=== PATIENT | female | born 1930 | race Caucasian/White ===

== ENCOUNTER 2018-01-07 12:14 | Emergency (ER) | payer MEDICARE, BC ==
--- NOTE | 2018-01-07 12:24 | EDM.PDOC ---
ED HPI GENERAL MEDICAL PROBLEM - General Chief Complaint: Back Pain or Injury Stated Complaint: BACK PAIN Time Seen by Provider: 01/07/18 12:21 Source of Information: Reports: Patient History Limitations: Reports: No Limitations - History of Present Illness INITIAL COMMENTS - FREE TEXT/NARRATIVE: HISTORY AND PHYSICAL: History of present illness: Patient is an 87-year-old female who presents to the emergency room with complaints of low back pain that radiates down her left lower extremity. She states she has a long-standing history of sciatic pain she has taken Flexeril, hydrocodone and Aleve for in the past. She reports she did a lot of "ironing yesterday" and when she woke up this morning was having low back pain that radiated down the left gluteus and posterior thigh. She tried Aleve this morning without any relief. Attempted to get into her primary care provider but he is out of town until next week. She does not have Flexeril or hydrocodone left for her sciatica. She denies any dysuria, hematuria, change in bowel pattern. She denies any new injury, falls or trauma. Review of systems: As per history of present illness and below otherwise all systems reviewed and negative. Past medical history: As per history of present illness and as reviewed below otherwise noncontributory. Surgical history: As per history of present illness and as reviewed below otherwise noncontributory. Social history: No reported history of drug or alcohol abuse. Family history: As per history of present illness and as reviewed below otherwise noncontributory. Physical exam: General: Well-developed and well-nourished 87-year-old female. Alert and oriented. Nontoxic appearing and in no acute distress. HEENT: Atraumatic, normocephalic, pupils equal and reactive bilaterally, negative for conjunctival pallor or scleral icterus, mucous membranes moist, throat clear, neck supple, nontender, trachea midline. No drooling or trismus noted. No meningeal signs Lungs: Clear to auscultation, breath sounds equal bilaterally, chest nontender. Heart: S1S2, regular rate and rhythm without overt murmur Abdomen: Soft, nondistended, nontender. Negative for masses or hepatosplenomegaly. Negative for costovertebral tenderness. Pelvis: Stable nontender. Genitourinary: Deferred. Rectal: Deferred. C-spine/Back Skin: Intact, warm, dry. No lesions or rashes noted. Extremities: Atraumatic, negative for cords or calf pain. Neurovascular unremarkable. Neuro: Awake, alert, oriented. Cranial nerves II through XII unremarkable. Cerebellum unremarkable. Motor and sensory unremarkable throughout. Exam nonfocal. Notes: A CT of the lumbar spine was done in 2016 which showed degenerative disc disease. Patient states she has been seeing her primary doctor for management of her sciatic pain. I would like to get a urinalysis to rule out UTI due to her age and complaint of back pain. UA is normal. I will give her Cataflam 50 mg one tab 3 times a day, dispense 21 no refill. Flexeril 5 mg 1 tab 3 times a day when necessary, dispense 21 no refill. Educated her to follow up with her primary caregiver. She voices understanding and is agreeable to plan of care. She denies any questions at this time. Diagnostics: [employer]: [] Impression: Low back pain with sciatica Plan: 1. Please take the medications as prescribed. The Cataflam is an anti- inflammatory so do not take it with additional NSAIDs such as ibuprofen or Aleve. Take this medication with food. Flexeril is a muscle relaxer. This medication may cause drowsiness so do not take it while driving or needing to be functioning outside of the house. Take these medications together up to 3 times daily. 2. Apply gentle heat to the painful area. Gentle stretching and range of motion exercises. Avoid sitting or being inactive for long periods of time. 3. Please follow-up with your primary caregiver in the next 2-3 days. Return to the ED as needed and as discussed. Definitive disposition and diagnosis as appropriate pending reevaluation and review of above. left back Pain Score (Numeric/FACES): 10 - Related Data Allergies Allergy/AdvReac Type Severity Reaction Status Date / Time Sulfa (Sulfonamide Allergy Other Verified 01/07/18 12:15 Antibiotics) Home Meds: Home Meds Aspirin 81 mg PO DAILY 04/03/16 [History] Clopidogrel [Plavix] 75 mg PO DAILY 04/03/16 [History] Insulin Glarg,Human.Rec.Analog [LantUS Solostar] 44 units SUBCUT BEDTIME [History] Insulin Lispro [HumaLOG] 20 units SUBCUT TIDAC 04/03/16 [History] Lutein/Minerals/Vit A,C & E [Ocuvite] 1 tab PO DAILY 04/03/16 [History] Triamterene/Hydrochlorothiazid [Triamterene-HCTZ 75-50 MG] 1 tab PO DAILY [History] Verapamil HCl [Verelan Pm] 300 mg PO BEDTIME 04/03/16 [History] amLODIPine [Norvasc] 5 mg PO DAILY 04/03/16 [History] atorvaSTATin [Lipitor] 5 mg PO DAILY 04/03/16 [History] cloNIDine [Catapres] 0.1 mg PO BID 04/03/16 [History] Cyclobenzaprine [Flexeril] 5 mg PO BID 01/07/18 [History] Hydrocodone/Acetaminophen [Hydrocodon-Acetaminoph 2.5-325] 1 tab PO BID [History] Losartan [Cozaar] 100 mg PO DAILY 01/07/18 [History] amLODIPine [Norvasc] 5 mg PO DAILY 01/07/18 [History] Past Medical History Cardiovascular History: Reports: Hypertension Musculoskeletal History: Reports: Other (See Below) Other Musculoskeletal History: sciatica Other Neuro History: Bilateral Carotid Stenosis, "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 Psychiatric History: Reports: None Endocrine/Metabolic History: Reports: Diabetes, Type II Immunologic History: Reports: None Oncologic (Cancer) History: Reports: None - Infectious Disease History Infectious Disease History: Reports: None - Past Surgical History Head Surgeries/Procedures: Reports: None Social & Family History - Family History Family Medical History: Noncontributory - Tobacco Use Smoking Status *Q: Never Smoker Second Hand Smoke Exposure: Yes - Recreational Drug Use Recreational Drug Use: No ED ROS GENERAL - Review of Systems Review Of Systems: ROS reveals no pertinent complaints other than HPI. ED EXAM,LOWER BACK PAIN/INJURY - Physical Exam Exam: See Below (See dictation) Course - Vital Signs Last Recorded V/S: Last Vital Signs Temp 97.7 F 01/07/18 12:17 Pulse 74 01/07/18 12:17 Resp 18 01/07/18 12:17 BP 121/64 01/07/18 12:17 Pulse Ox 96 01/07/18 12:17 - Orders/Labs/Meds Orders: Active Orders 24 hr Category Date Time Status UA W/MICROSCOPIC [URIN] Stat Lab 01/07/18 12:35 Ordered Labs: Laboratory Tests 01/07/18 Range/Units 12:35 Urine Color YELLOW Urine Appearance CLEAR Urine pH 6.0 (5.0-8.0) Ur Specific [place] 1.015 (1.001-1.035) Urine Protein TRACE (NEGATIVE) mg/dL Urine Glucose (UA) NEGATIVE (NEGATIVE) mg/dL Urine Ketones NEGATIVE (NEGATIVE) mg/dL Urine Occult Blood NEGATIVE (NEGATIVE) Urine Nitrite NEGATIVE (NEGATIVE) Urine Bilirubin NEGATIVE (NEGATIVE) Urine Urobilinogen 0.2 (<2.0) EU/dL Ur Leukocyte Esterase SMALL (NEGATIVE) Urine RBC 0-1 (0-2/HPF) Urine WBC 1-2 (0-5/HPF) Ur Epithelial Cells MODERATE (NONE-FEW) Urine Bacteria RARE (NEGATIVE) Departure - Departure Time of Disposition: 13:11 Disposition: Home, Self-Care 01 Clinical Impression: Low back pain Qualifiers: Chronicity: chronic Back pain laterality: bilateral Sciatica presence: with sciatica Sciatica laterality: sciatica of left side Qualified Code(s): M54.42 - Lumbago with sciatica, left side - Discharge Information Instructions: Back Pain, Adult, [id number] Referrals: Gm Nieves MD [Primary Care Provider] - Forms: ED Department Discharge Additional Instructions: The following information is given to patients seen in the emergency department who are being discharged to home. This information is to outline your options for follow-up care. We provide all patients seen in our emergency department with a follow-up referral. The need for follow-up, as well as the timing and circumstances, are variable depending upon the specifics of your emergency department visit. If you don't have a primary care physician on staff, we will provide you with a referral. We always advise you to contact your personal physician following an emergency department visit to inform them of the circumstance of the visit and for follow-up with them and/or the need for any referrals to a consulting specialist. The emergency department will also refer you to a specialist when appropriate. This referral assures that you have the opportunity for follow-up care with a specialist. All of these measure are taken in an effort to provide you with optimal care, which includes your follow-up. Under all circumstances we always encourage you to contact your private physician who remains a resource for coordinating your care. When calling for follow-up care, please make the office aware that this follow-up is from your recent emergency room visit. If for any reason you are refused follow-up, please contact the [facility] Emergency Department at and asked to speak to the emergency department charge nurse. [facility] [address] [place] [address] [facility] [address] [place] [address] 1. Please take the medications as prescribed. The Cataflam is an anti- inflammatory so do not take it with additional NSAIDs such as ibuprofen or Aleve. Take this medication with food. Flexeril is a muscle relaxer. This medication may cause drowsiness so do not take it while driving or needing to be functioning outside of the house. Take these medications together up to 3 times daily. 2. Apply gentle heat to the painful area. Gentle stretching and range of motion exercises. Avoid sitting or being inactive for long periods of time. 3. Please follow-up with your primary caregiver in the next 2-3 days. Return to the ED as needed and as discussed. - My Orders Last 24 Hours: My Active Orders 01/07/18 12:35 UA W/MICROSCOPIC [URIN] Stat - Assessment/Plan Last 24 Hours: My Active Orders 01/07/18 12:35 UA W/MICROSCOPIC [URIN] Stat
[2018-01-07 14:03] VITALS: BP 120/54
== END 2018-01-07 13:25 | disposition home or self-care (01) ==
LOC: MW.ED 12:14
DX: M54.42 Lumbago with sciatica, left side (principal); E11.9 Type 2 diabetes mellitus without complications; Z79.899 Other long term (current) drug therapy; Z79.82 Long term (current) use of aspirin
CPT/HCPCS: 81001; 99283